=== PATIENT | male | born 1960 | race Caucasian/White ===

== ENCOUNTER 2016-08-23 07:07 | Emergency (ER) | payer MEDICARE, OTHER ==
[~2016-08-23 07:07] MED LIST: ACTOS15 MG PO; ALTACE5 MG PO; AMITRIPTYLINE H50 MG PO; DEPAKENE250 MG PO; GLUCOPHAGE1000 MG PO; HYDROCODON-ACE1 EAC6 PO; KLONOPIN1 MG PO; LIPITOR20 MG PO; LOFIBRA160 MG PO; ROBAXIN-750750 MG PO; ZOLOFT50 MG PO
== END 2016-08-23 10:32 | disposition home or self-care (01) ==
LOC: ER 07:07
DX: T78.3XXA Angioneurotic edema, initial encounter (principal); F43.10 Post-traumatic stress disorder, unspecified; F32.9 Major depressive disorder, single episode, unspecified; E10.9 Type 1 diabetes mellitus without complications; K21.9 Gastro-esophageal reflux disease without esophagitis; I10 Essential (primary) hypertension; F17.210 Nicotine dependence, cigarettes, uncomplicated; Z79.899 Other long term (current) drug therapy; Z88.5 Allergy status to narcotic agent; Z88.8 Allergy status to other drugs, medicaments and biological substances
CPT/HCPCS: 96361; 96374; 96375; J1200

== ENCOUNTER 2016-09-27 14:05 | Emergency (ER) | payer MEDICARE, OTHER | END 2016-09-27 14:47 | disposition home or self-care (01) | LOC: ER 14:05 | DX: L02.214 Cutaneous abscess of groin (principal); F32.9 Major depressive disorder, single episode, unspecified; F43.10 Post-traumatic stress disorder, unspecified; K21.9 Gastro-esophageal reflux disease without esophagitis; J44.9 Chronic obstructive pulmonary disease, unspecified; I10 Essential (primary) hypertension; E11.9 Type 2 diabetes mellitus without complications; F17.210 Nicotine dependence, cigarettes, uncomplicated; Z87.442 Personal history of urinary calculi; Z79.4 Long term (current) use of insulin; Z79.899 Other long term (current) drug therapy; Z88.5 Allergy status to narcotic agent; Z88.8 Allergy status to other drugs, medicaments and biological substances ==

== ENCOUNTER 2016-10-21 20:36 | Emergency (ER) | payer MEDICARE | END 2016-10-21 21:55 | disposition home or self-care (01) | LOC: ER 20:36 | DX: L02.214 Cutaneous abscess of groin (principal); B35.6 Tinea cruris; J44.9 Chronic obstructive pulmonary disease, unspecified; K21.9 Gastro-esophageal reflux disease without esophagitis; I10 Essential (primary) hypertension; E11.9 Type 2 diabetes mellitus without complications; F32.9 Major depressive disorder, single episode, unspecified; F43.10 Post-traumatic stress disorder, unspecified; F17.210 Nicotine dependence, cigarettes, uncomplicated; Z87.442 Personal history of urinary calculi; Z88.5 Allergy status to narcotic agent; Z88.8 Allergy status to other drugs, medicaments and biological substances; Z79.4 Long term (current) use of insulin; Z79.899 Other long term (current) drug therapy ==